=== PATIENT | male | born 1950 | race American Indian/Alaskan Native ===

== ENCOUNTER 2018-07-20 12:21 | Emergency (ER) | payer MEDICAID, MEDICARE ==
[2018-07-20] MEDS ORDERED: BOOSTRIX IM ONE (12:27)
[2018-07-20 12:30] VITALS: BP 167/99
--- NOTE | 2018-07-20 12:33 | Emergency Department Report ---
Blank Doc - Documentation Documentation: fishing hook to left 5th digit x 1 hour. no bleeding or discharge. Plan. [employer] and removal of hook in Fast track
--- NOTE | 2018-07-20 13:43 | Emergency Department Report ---
- General Chief complaint: Skin/Abscess/Foreign Body Stated complaint: HOOK CAUGHT IN FINGER Time Seen by Provider: 07/20/18 12:26 Source: patient Mode of arrival: Ambulatory Limitations: No Limitations - History of Present Illness Initial comments: This is a 8-year-old male who presents to ED with small fishhook attached to his right index finger. Patient states that this happened earlier today while he was fishing. Patient stated this happened accidentally. Patient states he was unable to take out the fishhook. Patient states his tetanus is not up to date. He is to discuss chest/nausea vomiting or any other symptoms. - Related Data Previous Rx's Medication Instructions Recorded Last Taken Type Ibuprofen [Motrin] 800 mg PO Q8HR #30 tablet 07/20/18 Unknown Rx cephALEXin [Keflex] 500 mg PO Q12HR #10 cap 07/20/18 Unknown Rx Allergies Allergy/AdvReac Type Severity Reaction Status Date / Time bee venom protein (honey bee) Allergy Hives Verified 07/20/18 12:28 Abscess Boil HPI - HPI Chief Complaint: Skin/Abscess/Foreign Body Stated Complaint: HOOK CAUGHT IN FINGER Time Seen by Provider: 07/20/18 12:26 Home Medications: Previous Rx's Medication Instructions Recorded Last Taken Type Ibuprofen [Motrin] 800 mg PO Q8HR #30 tablet 07/20/18 Unknown Rx cephALEXin [Keflex] 500 mg PO Q12HR #10 cap 07/20/18 Unknown Rx Allergies/Adverse Reactions: Allergies Allergy/AdvReac Type Severity Reaction Status Date / Time bee venom protein (honey bee) Allergy Hives Verified 07/20/18 12:28 ED Review of Systems ROS: Stated complaint: HOOK CAUGHT IN FINGER Other details as noted in HPI Comment: All other systems reviewed and negative ED Past Medical Hx - Past Medical History Previous Medical History?: No - Surgical History Past Surgical History?: No - Social History Smoking Status: Current Every Day Smoker Substance Use Type: Alcohol - Medications Home Medications: Home Medications Medication Instructions Recorded Confirmed Last Taken Type Ibuprofen [Motrin] 800 mg PO Q8HR #30 tablet 07/20/18 Unknown Rx cephALEXin [Keflex] 500 mg PO Q12HR #10 cap 07/20/18 Unknown Rx ED Physical Exam - General Limitations: No Limitations General appearance: alert, in no apparent distress - Head Head exam: Present: atraumatic, normocephalic - Eye Eye exam: Present: normal appearance - ENT ENT exam: Present: mucous membranes moist - Neck Neck exam: Present: normal inspection - Respiratory Respiratory exam: Present: normal lung sounds bilaterally. Absent: respiratory distress - Cardiovascular Cardiovascular Exam: Present: regular rate, normal rhythm. Absent: systolic murmur, diastolic murmur, rubs, gallop - GI/Abdominal GI/Abdominal exam: Present: soft, normal bowel sounds - Rectal Rectal exam: Present: deferred - Extremities Exam Extremities exam: Present: normal inspection - Expanded Upper Extremity Exam Right Elbow exam: Present: full ROM Forearm Wrist exam: Present: full ROM Hand Wrist exam: Present: full ROM, other (small fishhook stuck the right index finger, no bleeding, no swelling noted) Vascular: Absent: vascular compromise - Back Exam Back exam: Present: normal inspection - Neurological Exam Neurological exam: Present: alert, oriented X3 - Psychiatric Psychiatric exam: Present: normal affect, normal mood - Skin Skin exam: Present: warm, dry, intact, normal color. Absent: rash ED Course Vital Signs 07/20/18 12:28 Temperature 99 F Pulse Rate 82 Respiratory 16 Rate Blood Pressure 167/99 O2 Sat by Pulse 99 Oximetry ED Medical Decision Making - Medical Decision Making 68-year-old male presents here for fishhook stuck his index finger [place] was removed from index finger in the ED. Digital block was obtained with 3 mL of lidocaine without epinephrine. 11 blade was used to make a small opening to the index finger. [place] was twisted out of the index finger without medical conditions. Patient tolerated the procedure well. he received tetanus booster in the ED prior to discharge That is normal he is in no acute distress. Discussed follow-up with primary care physician. Critical care attestation.: If time is entered above; I have spent that time in minutes in the direct care of this critically ill patient, excluding procedure time. ED Disposition Clinical Impression: Foreign body (FB) in soft tissue Disposition: [id number] TO HOME OR SELFCARE Is pt being admited?: No Does the pt Need Aspirin: No Condition: Stable Instructions: Soft Tissue Foreign Body (ED) Additional Instructions: Make sure to follow up with the primary care physician as discussed. Take all your medications as you've been prescribed. If you have any worsening symptoms or develop new symptoms please return to ED immediately. Prescriptions: cephALEXin [Keflex] 500 mg PO Q12HR #10 cap Ibuprofen [Motrin] 800 mg PO Q8HR #30 tablet Referrals: LAZARUS ROCKWELL MD [Primary Care Provider] - 3-5 Days Forms: Accompanied Note, Work/School Release Form(ED) Time of Disposition: 13:45
== END 2018-07-20 14:07 | disposition home or self-care (01) ==
LOC: ED 12:21
DX: S60.450A Superficial foreign body of right index finger, initial encounter (principal); F17.200 Nicotine dependence, unspecified, uncomplicated; W45.8XXA Other foreign body or object entering through skin, initial encounter; Y93.89 Activity, other specified; Y92.89 Other specified places as the place of occurrence of the external cause; Y99.8 Other external cause status
CPT/HCPCS: 90471; 90715

== ENCOUNTER 2020-10-08 15:41 | Emergency (ER) | payer OTHER, MEDICARE ==
[2020-10-08 16:32] VITALS: BP 149/95
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
== END 2020-10-08 18:23 | disposition home or self-care (01) ==
LOC: ED 15:41
DX: S80.02XA Contusion of left knee, initial encounter (principal); S69.91XA Unspecified injury of right wrist, hand and finger(s), initial encounter; F17.200 Nicotine dependence, unspecified, uncomplicated; Z79.899 Other long term (current) drug therapy; Z91.048 Other nonmedicinal substance allergy status; V49.49XA Driver injured in collision with other motor vehicles in traffic accident, initial encounter; Y92.410 Unspecified street and highway as the place of occurrence of the external cause; Y93.89 Activity, other specified; Y99.8 Other external cause status
CPT/HCPCS: 99281